=== PATIENT | male | born 1955 | race Caucasian/White ===

== ENCOUNTER 2017-07-31 08:21 | Observation (INO) | payer OTHER ==
[~2017-07-31] VITALS: Ht 185.4 cm; Wt 93.6 kg
[2017-07-31] VITALS (10 sets, daily range): BP systolic 131–163; BP diastolic 71–100; PULSE 80–93; RESP 16–18; TEMP 97.6–98.5; O2SAT 97–100
[~2017-07-31 08:21] MED LIST: ATEN-100 PO; LAMO25TA PO; LATU40TA PO; LISI20 PO; LORA-392 PO; LORTA5 PO; OXCA600 PO; REME15TA PO; SOMA350T PO
[2017-07-31] MEDS ORDERED: SODIUM CHLOR 0.9% 1000 ML INJ 1,000 ML IV ONE (08:36)
--- NOTE | 2017-07-31 08:36 | PD ---
HPI Chief Complaint: Neuro Symptoms/ Deficits Time Seen by Provider: 08:32 Travel History International Travel<30 days: No Contact w/Intl Traveler<30days: No Traveled to known affect area: No History of Present Illness HPI According to patient history he went to sleep and was feeling fine and when he woke up this morning he was unable to do so because he had tremendous weakness on his right side of his body and he was unable to speak clearly. 911 was called the EMS transported the patient in to the emergency department. Patient denies any headache, any blurred vision, or double vision. Patient also denies any pain elsewhere to his body Dr. Jeferson Damico is a primary care physician Allergies to Dilaudid Cipro Doxy fentanyl Levaquin meloxicam Tygacil minocycline and celecoxib Per chart review the patient has history of seizures although the last one was a long time ago previous to 2014, history of bipolar, history of hepatitis B, history of GERD arthritis peptic ulcer, history of hypertension history of hypercholesterolemia, and history of smoking for 40 years PFSH Past Medical History Arthritis: Yes (osteoarrheitis) Bipolar Disorder: Yes Anxiety: No Depression: No Cancer: No Cardiovascular Problems: No Endocrine: No Genitourinary: No Hepatitis: Yes (B) Immune Disorder: No Musculoskeletal: Yes Neurologic: Yes Psychiatric: Yes (pt is bi polar) Reproductive: No Respiratory: No Migraines: No Seizures: Yes (last seizure long time ago) Past Surgical History Other Surgery: Yes Social History Alcohol Use: No Tobacco Use: No Substance Use: No Allergies-Medications (Allergen,Severity, Reaction): Coded Allergies: celecoxib (Unverified Allergy, Severe, RASH, 07/31/17) doxycycline (Unverified Allergy, Severe, ANGIO-EDEMA, 07/31/17) fentanyl (Unverified Allergy, Severe, ITCHING, 07/31/17) levofloxacin (Unverified Allergy, Severe, ANGIO EDEMA, 07/31/17) meloxicam (Unverified Allergy, Severe, RASH, 07/31/17) minocycline (Unverified Allergy, Severe, ANGIO-EDEMA, 07/31/17) tigecycline (Unverified Allergy, Severe, ANGIO-EDEMA, 07/31/17) ciprofloxacin (Unverified Allergy, Unknown, 07/31/17) Reported Meds & Prescriptions Reported Meds & Active Scripts Active Reported Buspirone (Buspirone HCl) 5 Mg Tab 5 Mg PO DAILY Amlodipine (Amlodipine Besylate) 5 Mg Tab 5 Mg PO DAILY Lamotrigine 25 Mg Tab 75 Mg PO HS Xanax (Alprazolam) 0.5 Mg Tab 0.5 Mg PO DAILY PRN Mirtazapine 45 Mg Tab 45 Mg PO HS Trileptal (Oxcarbazepine) 600 Mg Tab 1,800 Mg PO HS Latuda (Lurasidone) 40 Mg Tab 40 Mg PO HS Atenolol 25 Mg Tab 25 Mg PO DAILY Review of Systems Except as stated in HPI: all other systems reviewed are Neg General / Constitutional: No: Fever Eyes: No: Visual changes HENT: No: Headaches Cardiovascular: No: Chest Pain or Discomfort Respiratory: No: Shortness of Breath Gastrointestinal: No: Abdominal Pain Genitourinary: No: Dysuria Musculoskeletal: No: Pain Skin: No Rash Neurologic: Positive: Weakness, Focal Abnormalities Psychiatric: No: Depression Endocrine: No: Polydipsia Hematologic/Lymphatic: No: Easy Bruising Physical Exam Narrative GENERAL: SKIN: Warm and dry. HEAD: Atraumatic. Normocephalic. EYES: Pupils equal and round. No scleral icterus. No injection or drainage. ENT: No nasal bleeding or discharge. Mucous membranes pink and moist. NECK: Trachea midline. No JVD. CARDIOVASCULAR: Regular rate and rhythm. RESPIRATORY: No accessory muscle use. Clear to auscultation. Breath sounds equal bilaterally. GASTROINTESTINAL: Abdomen soft, non-tender, nondistended. Hepatic and splenic margins not palpable. MUSCULOSKELETAL: Extremities without clubbing, cyanosis, or edema. No obvious deformities. NEUROLOGICAL: Awake and alert. Follow instructions well. Right sided facial droop, right-sided weakness 2 out of 5 on right upper extremity, 3 out of 5 on right lower extremity, left upper extremity 4 out of 5 and left lower extremity 4 out of 5 dysarthric but understandable speech PSYCHIATRIC: Appropriate mood and affect; insight and judgment normal. Data Data Last Documented VS Orders Orders Electrocardiogram (07/31/17 ) Diet Npo (07/31/17 Breakfast) Activity Bed Rest (07/31/17 ) I-Stat Profile (07/31/17 08:36) Prothrombin Time / Inr (Pt) (07/31/17 08:36) Act Partial Throm Time (Ptt) (07/31/17 08:36) Complete Blood Count With Diff (07/31/17 08:36) Fibrinogen (07/31/17 08:36) Creatine Kinase (Cpk) (07/31/17 08:36) Troponin I (07/31/17 08:36) Ua Includes Microscopic (07/31/17 08:36) Drug Screen, Random Urine (07/31/17 08:36) Type And Screen (07/31/17 08:36) Ct Brain W/O Iv Contrast(Rout) (07/31/17 ) Chest, Single Ap (07/31/17 ) Cta Brain W Iv Contrast W 3d (07/31/17 08:36) Cta Neck W Iv Contrast W 3d (07/31/17 08:36) Consult Neurology (07/31/17 ) Blood Glucose (07/31/17 08:36) Ecg Monitoring (07/31/17 08:36) Neuro Checks Q2HX12,Q4H (07/31/17 08:36) Nursing Bedside Swallow Assess .ONCE (07/31/17 08:36) Iv Access Insert/Monitor (07/31/17 08:36) NPO (07/31/17 08:36) Oximetry (07/31/17 08:36) Resp Oxygen Nc Stroke (07/31/17 ) Sodium Chlor 0.9% 1000 Ml Inj (Ns 1000 M (07/31/17 08:36) Cath For Specimen (07/31/17 08:36) (Hub Use Only)Inp Phy Cons/Ref (07/31/17 ) Iodixanol 320 Inj (Rad Ct) (Visipaque 32 (07/31/17 09:19) Aspirin (Aspirin) (07/31/17 09:30) Admit Order (Ed Use Only) (07/31/17 09:41) Labs Laboratory Tests Test 07/31/17 08:40 White Blood Count 5.3 TH/MM3 Red Blood Count 4.13 MIL/MM3 Hemoglobin 13.1 GM/DL Bedside Hemoglobin 12.6 G/DL Hematocrit 37.9 % Bedside Hematocrit 37.0 % Mean Corpuscular Volume 91.8 FL Mean Corpuscular Hemoglobin 31.8 PG Mean Corpuscular Hemoglobin Concent 34.7 % Red Cell Distribution Width 13.2 % Platelet Count 225 TH/MM3 Mean Platelet Volume 7.9 FL Neutrophils (%) (Auto) 61.5 % Lymphocytes (%) (Auto) 29.6 % Monocytes (%) (Auto) 5.7 % Eosinophils (%) (Auto) 2.2 % Basophils (%) (Auto) 1.0 % Neutrophils # (Auto) 3.3 TH/MM3 Lymphocytes # (Auto) 1.6 TH/MM3 Monocytes # (Auto) 0.3 TH/MM3 Eosinophils # (Auto) 0.1 TH/MM3 Basophils # (Auto) 0.1 TH/MM3 CBC Comment DIFF FINAL Differential Comment Prothrombin Time 10.0 SEC Prothromb Time International Ratio 1.0 RATIO Activated Partial Thromboplast Time 22.9 SEC Fibrinogen 269 mg/dL Bedside Sodium 139 MMOL/L Bedside Potassium 3.5 MMOL/L Bedside Chloride 104 MMOL/L Bedside Blood Urea Nitrogen 19 MG/DL Bedside Creatinine 1.2 MG/DL Bedside Glucose 115 MG/DL Total Creatine Kinase 166 U/L Troponin I LESS THAN 0.02 NG/ML MDM Medical Decision Making Medical Screen Exam Complete: Yes Emergency Medical Condition: Yes Medical Record Reviewed: Yes Differential Diagnosis Intracranial hemorrhage versus ischemic CVA versus hypoglycemia versus electrolyte imbalance versus atypical STEMI Narrative Course Due to the patient history that he woke up this way it is unclear what the actual timeframe of this CVA deficits are therefore the patient is outside of the window for TPA. Will be sharing this information with the neurologist and CT scan will be on standby to perform CAT scan, she had the CAT scan did not show any intracranial hemorrhage the patient will be given aspirin (of note the patient list NSAIDs as allergies, because he has a history of stomach ulcers, and has been advised not to take that class of medications.) CT read by radiologist as no acute intracranial abnormality identified Discussed with Dr. Alvarado who agrees with current management and admission for CVA workup Critical Care Narrative CRITICAL CARE NOTE: With evaluation of the patient, labs, EKG, receipt of radiologic studies, administration of medications, reevaluation the patient and discussion of the patient with the admitting physicians, the total critical care time was [30] minutes. Time to perform other separately billable procedures was not included in the critical care time. Physician Communication Physician Communication On reevaluation at around 11:30 AM or so the patient's right upper and right lower extremity weaknesses paresis is fully resolved, patient's aphasia or dysarthria also returned to normal and he no longer has a facial palsy either. Patient most likely was experiencing a possible TIA and the workup is unchanged and will continue Diagnosis Primary Impression: TIA (transient ischemic attack) Qualified Codes: G45.9 - Transient cerebral ischemic attack, unspecified Admitting Information Admitting Physician Requests: Admit Scripts Aspirin DR (Aspirin EC) 325 Mg Tabdr 325 MG PO DAILY for TIA, #31 TAB Prov: Daisy Stone 08/01/17 Wang Stratton MD Jul 31, 2017 08:36
--- NOTE | 2017-07-31 08:59 | RADRPT ---
EXAM DATE/TIME: 07/31/2017 08:43 [facility] COMPARISON: CT BRAIN W/O CONTRAST, November 03, 2014, 13:50. INDICATIONS : Slurred speech, right facial droop RADIATION DOSE: 56.35 CTDIvol (mGy) MEDICAL HISTORY : Seizures. Cardiovascular disease SURGICAL HISTORY : None. ENCOUNTER: Initial ACUITY: 1 day PAIN SCALE: 0/10 LOCATION: cranial TECHNIQUE: Multiple contiguous axial images were obtained of the head. Using automated exposure control and adj ustment of the mA and/or kV according to patient size, radiation dose was kept as low as reasonably a chievable to obtain optimal diagnostic quality images. DICOM format image data is available electro nically for review and comparison. FINDINGS: CEREBRUM: The ventricles are normal for age. No evidence of midline shift, mass lesion, hemorrhage or acute in farction. No extra-axial fluid collections are seen. POSTERIOR FOSSA: The cerebellum and brainstem are intact. The 4th ventricle is midline. The cerebellopontine angle i s unremarkable. EXTRACRANIAL: The visualized portion of the orbits is intact. SKULL: The calvaria is intact. No evidence of skull fracture. CONCLUSION: 1. No acute intracranial abnormality identified. Lopez Grant MD on July 31, 2017 at 8:52 Board Certified Radiologist. This report was verified electronically.
[2017-07-31 09:09] LABS: AUTOMATED NEUTROPHIL # 3.3 TH/MM3 (1.8-7.7); BASOPHIL # 0.1 TH/MM3 (0-0.2); EOSINOPHIL # 0.1 TH/MM3 (0-0.4); EOSINOPHIL % 2.2 % (0.0-4.0); HEMATOCRIT 37.9 % (39.0-51.0); HEMOGLOBIN 13.1 GM/DL (13.0-17.0); LYMPH % 29.6 % (9.0-44.0); LYMPHOCYTE # 1.6 TH/MM3 (1.0-4.8); MEAN CELL VOLUME 91.8 FL (80.0-100.0); MEAN CORPUSCULAR HEMOGLOBIN 31.8 PG (27.0-34.0); MEAN CORPUSCULAR HGB CONC 34.7 % (32.0-36.0); MEAN PLATELET VOLUME 7.9 FL (7.0-11.0); MONO % 5.7 % (0.0-8.0); MONOCYTE # 0.3 TH/MM3 (0-0.9); NEUT % 61.5 % (16.0-70.0); PLATELET COUNT 225 TH/MM3 (150-450); RED BLOOD COUNT 4.13 MIL/MM3 (4.50-5.90); RED CELL DISTRIBUTION WIDTH 13.2 % (11.6-17.2); WHITE BLOOD COUNT 5.3 TH/MM3 (4.0-11.0)
[2017-07-31] MEDS ORDERED: IODIXANOL 320 MG/ML 10 ML VIAL (for Rad CT) IVCONTRAST ONE (09:19)
[2017-07-31] MEDS ORDERED: ASPIRIN 325 MG TAB PO ONE (09:30)
[2017-07-31 09:34] LABS: TROPONIN I LESS THAN 0.02 NG/ML (0.02-0.05)
--- NOTE | 2017-07-31 09:39 | RADRPT ---
EXAM DATE/TIME: 07/31/2017 09:18 [facility] COMPARISON: CHEST SINGLE AP, November 02, 2014, 14:39. INDICATIONS : Stroke. MEDICAL HISTORY : Cardiovascular disease. Seizures. SURGICAL HISTORY : None. ENCOUNTER: Initial ACUITY: 1 day PAIN SCORE: 0/10 LOCATION: Bilateral chest FINDINGS: There is lesser degree of inspiration than on prior chest x-ray at 2014 and there is some indistinctn ess of the central bronchopulmonary markings most top no definite infiltrates seen. The heart is nor mal size. Both hemidiaphragms are well delineated. CONCLUSION: Indistinctness of the central bronchopulmonary markings could be a manifestation of submaximal inspir ation or pulmonary edema. Glynn Lozano MD on July 31, 2017 at 9:36 Board Certified Radiologist. This report was verified electronically.
[2017-07-31] MEDS ORDERED: ONDANSETRON HCL 4 MG/2 ML VIAL ONE (10:12)
--- NOTE | 2017-07-31 10:12 | RADRPT ---
EXAM DATE/TIME: 07/31/2017 08:43 [facility] COMPARISON: CT BRAIN W/O CONTRAST, November 03, 2014, 13:50. INDICATIONS : Slurred speech, right facial droop. IV CONTRAST: 100 cc Visipaque (iodixanol) IV RADIATION DOSE: 10.23 CTDIvol (mGy) MEDICAL HISTORY : Cardiovascular disease. Seizures. SURGICAL HISTORY : None. ENCOUNTER: Initial ACUITY: 1 day PAIN SCALE: 0/10 LOCATION: neck Elevated flow velocities and ICA/CCA ratios have been found to correlate with increased degrees of vessel stenosis, calculated as percentage of diameter relative to a normal segment of distal ICA/CCA. TECHNIQUE: Volumetric scanning was performed using a multirow detector CT scanner. The data was post processed with a variety of visualization algorithms including full-volume maximum intensity projection, multip lanar sliding thin-slab reformation, curved-planar reformation, and surface-rendering techniques. Us ing automated exposure control and adjustment of the mA and/or kV according to patient size, radiatio n dose was kept as low as reasonably achievable to obtain optimal diagnostic quality images. DICOM f ormat image data is available electronically for review and comparison. FINDINGS: AORTIC ARCH: There is a three-vessel origin of the great vessels from the aorta. No evidence of ostial narrowing. RIGHT CAROTID: The common carotid artery is intact. The carotid bulb has a normal configuration without ulceration o r narrowing. The internal carotid artery lumen is smooth without stenosis. The external carotid ramonita ry is intact. LEFT CAROTID: The common carotid artery is intact. The carotid bulb has a normal configuration without ulceration or narrowing. The internal carotid artery lumen is smooth without stenosis. The external carotid ar lauren is intact. VERTEBRALS: The vertebral arteries have a symmetric diameter. No stenotic lesions are seen. CONCLUSION: 1. No hemodynamically significant carotid artery stenosis identified. 2. No significant plaque is identified 3. The vertebral arteries are widely patent. Lopez Grant MD on July 31, 2017 at 9:58 Board Certified Radiologist. This report was verified electronically.
--- NOTE | 2017-07-31 10:26 | RADRPT ---
EXAM DATE/TIME: 07/31/2017 08:43 [facility] COMPARISON: CT BRAIN W/O CONTRAST, November 03, 2014, 13:50. INDICATIONS : Slurred speech, right facial droop. IV CONTRAST: 100 cc Visipaque (iodixanol) IV ; Cumulative dose for multiple exams. RADIATION DOSE: 10.73 CTDIvol (mGy) ; Combined studies MEDICAL HISTORY : Seizures. Cardiovascular disease SURGICAL HISTORY : None. ENCOUNTER: Initial ACUITY: 1 day PAIN SCALE: 0/10 LOCATION: cranial TECHNIQUE: Volumetric scanning was performed using a multi-row detector CT scanner. The data was post processed with a variety of visualization algorithms including full volume maximum intensity projection, multi -planar sliding thin slab reformation, curved planar reformation, and surface rendering techniques. Using automated exposure control and adjustment of the mA and/or kV according to patient size, radiat ion dose was kept as low as reasonably achievable to obtain optimal diagnostic quality images. DICO M format image data is available electronically for review and comparison. FINDINGS: There is excellent visualization of the major intracranial arteries out to the second-order branch ve ssels. There is no evidence for aneurysm, vessel truncation or stenosis, and no evidence for vascula r malformation. CONCLUSION: 1. Intracranial circulation is widely patent. No large or central vessel occlusion is identified. Lopez Grant MD on July 31, 2017 at 10:10 Board Certified Radiologist. This report was verified electronically.
--- NOTE | 2017-07-31 10:33 | HHI.HP ---
HPI Service [facility] Hospitalists Primary Care Physician Jeferson Damico MD Admission Diagnosis ACUTE CVA Chief Complaint: Right sided weakness, dysarthria Travel History International Travel<30 Days: No Contact w/Intl Traveler <30 Da: No Traveled to Known Affected Are: No History of Present Illness Mr. Christianson is a pleasant 61 y/o WM with HTN, hyperlipidemia, hx of tobacco use who presented to the ED at [facility] on 07/31/17 with stroke-like symptoms. He reports that he went to sleep last night and was feeling normal. When he woke up this morning he had tremendous weakness on his right side of his body and he was unable to speak clearly. He states that he fell out of his bed due to the right sided weakness. Emergency services were called the EMS transported the patient to the emergency department as a stroke alert. Pt was noted to have a right sided facial droop as well. Patient denies any headache, any blurred vision, or double vision. He has had some dizziness with associated nausea and vomiting since arrival to the ED. Head CT in the ED was negative. Pt is in NSR on telemetry. He denies any known hx of irregular heart rhythms or hx of CVA/TIA previously. Neurology was contacted in the ED. CTA of the Head and Neck was performed and were negative. While in the ED the pts right sided weakness fully resolved and his speech returned to normal. He states that he has had some changes recently to his psych medications but is unable to give me specifics on which ones and what doses were changed. Review of Systems Constitutional: COMPLAINS OF: Dizziness, DENIES: Fever, Chills Eyes: DENIES: Vision loss Ears, nose, mouth, throat: DENIES: Hearing loss, Throat pain, Running Nose, Sinus Pain Respiratory: DENIES: Cough, Shortness of breath Cardiovascular: DENIES: Chest pain, Palpitations, Lower Extremity Edema Gastrointestinal: COMPLAINS OF: Nausea, Vomiting, DENIES: Abdominal pain Genitourinary: DENIES: Urgency, Dysuria Musculoskeletal: DENIES: Back pain, Neck pain Integumentary: DENIES: Rash Neurologic: COMPLAINS OF: Localized weakness, Speech Problems Psychiatric: DENIES: Confusion Past Family Social History Past Medical History HTN Hyperlipidemia Insomnia Bipolar disorder Chronic back pain Hx of BCC Hx of seizure disorder GERD Past Surgical History Multiple BCC removal EGD and colonoscopy Lumbar spine surgery in 2011 Reported Medications -Atenolol 25 Mg PO DAILY -Trileptal 1,800 Mg PO HS -Remeron 45 Mg PO HS -Latuda 40 Mg PO HS -Lamotrigine 75Mg PO HS -Alprazolam 0.5Mg PO BID PRN Anxiety -Amlodipine 5Mg PO DAILY -Buspirone 5Mg PO DAILY Allergies: Coded Allergies: celecoxib (Unverified Allergy, Severe, RASH, 07/31/17) doxycycline (Unverified Allergy, Severe, ANGIO-EDEMA, 07/31/17) fentanyl (Unverified Allergy, Severe, ITCHING, 07/31/17) levofloxacin (Unverified Allergy, Severe, ANGIO EDEMA, 07/31/17) meloxicam (Unverified Allergy, Severe, RASH, 07/31/17) minocycline (Unverified Allergy, Severe, ANGIO-EDEMA, 07/31/17) tigecycline (Unverified Allergy, Severe, ANGIO-EDEMA, 07/31/17) ciprofloxacin (Unverified Allergy, Unknown, 07/31/17) Family History Father at age 84 from CVA, also had HTN and CAD Mother at age 93 and had HTN, RCC and colon cancer Two bothers, one with hx of CAD and colon cancer Social History Hx of tobacco use, smoked 1/2 ppd from age 15 to 53 Rare social alcohol use Denies any illicit drug use 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 SKIN: No rashes, ecchymoses or lesions. Cool and dry. HEENT: Atraumatic. Normocephalic. No temporal or scalp tenderness. No scleral icterus. Horizontal nystagmus noted. Airway patent. NECK: Trachea midline, supple, nontender. CARDIO: Regular. RESP: CTA bilaterally. No wheezes, rales, or rhonchi. ABD: +BS, soft, non-tender, nondistended. No guarding. EXT: Extremities without clubbing, cyanosis, or edema. NEURO: Awake and alert. Cranial nerves II through XII intact. Motor and sensory grossly within normal limits. Five out of 5 muscle strength in all muscle groups. Normal speech. Laboratory Laboratory Tests Test 07/31/17 08:40 White Blood Count 5.3 Red Blood Count 4.13 Hemoglobin 13.1 Bedside Hemoglobin 12.6 Hematocrit 37.9 Bedside Hematocrit 37.0 Mean Corpuscular Volume 91.8 Mean Corpuscular Hemoglobin 31.8 Mean Corpuscular Hemoglobin Concent 34.7 Red Cell Distribution Width 13.2 Platelet Count 225 Mean Platelet Volume 7.9 Neutrophils (%) (Auto) 61.5 Lymphocytes (%) (Auto) 29.6 Monocytes (%) (Auto) 5.7 Eosinophils (%) (Auto) 2.2 Basophils (%) (Auto) 1.0 Neutrophils # (Auto) 3.3 Lymphocytes # (Auto) 1.6 Monocytes # (Auto) 0.3 Eosinophils # (Auto) 0.1 Basophils # (Auto) 0.1 CBC Comment DIFF FINAL Differential Comment Prothrombin Time 10.0 Prothromb Time International Ratio 1.0 Activated Partial Thromboplast Time 22.9 Fibrinogen 269 Bedside Sodium 139 Bedside Potassium 3.5 Bedside Chloride 104 Bedside Blood Urea Nitrogen 19 Bedside Creatinine 1.2 Bedside Glucose 115 Total Creatine Kinase 166 Troponin I LESS THAN 0.02 Result Diagram: 07/31/17 0840 Imaging Last Impressions Neck CTA 07/31/1736 Signed Impressions: Service Date/Time: July 08:43 - CONCLUSION: 1. No hemodynamically significant carotid artery stenosis identified. 2. No significant plaque is identified 3. The vertebral arteries are widely patent. Lopez Grant MD Head CTA 07/31/1736 Signed Impressions: Service Date/Time: July 08:43 - CONCLUSION: 1. Intracranial circulation is widely patent. No large or central vessel occlusion is identified. Lopez Grant MD Head CT 07/31/17 0000 Signed Impressions: Service Date/Time: July 08:43 - CONCLUSION: 1. No acute intracranial abnormality identified. Lopez Grant MD Chest X-Ray 07/31/17 0000 Signed Impressions: Service Date/Time: July 09:18 - CONCLUSION: Indistinctness of the central bronchopulmonary markings could be a manifestation of submaximal inspiration or pulmonary edema. Glynn Lozano MD Caprini VTE Risk Assessment Caprini VTE Risk Assessment: Mod/High Risk (score >= 2) Caprini Risk Assessment Model Point Value = 1 Point Value = 2 Point Value = 3 Point Value = 5 Age 41-60 Minor surgery BMI > 25 kg/m2 Swollen legs Varicose veins or History of unexplained or recurrent spontaneous Oral contraceptives or hormone replacement Sepsis (< 1 month) Serious lung disease, including pneumonia (< 1 month) Abnormal pulmonary function Acute myocardial infarction Congestive heart failure (< 1 month) History of inflammatory bowel disease Medical patient at bed rest Age 61-74 Arthroscopic surgery Major open surgery (> 45 min) Laparoscopic surgery (> 45 min) Malignancy Confined to bed (> 72 hours) Immobilizing plaster cast Central venous access Age >= 75 History of VTE Family history of VTE Factor V Leiden Prothrombin [id number] Lupus anticoagulant Anticardiolipin antibodies Elevated serum homocysteine Heparin-induced thrombocytopenia Other congenital or acquired thrombophilia Stroke (< 1 month) Elective arthroplasty Hip, pelvis, or leg fracture Acute spinal cord injury (< 1 month) Prophylaxis Regimen Total Risk Factor Score Risk Level Prophylaxis Regimen 0-1 Low Early ambulation 2 Moderate Order ONE of the following: *Sequential Compression Device (SCD) *Heparin 5000 units SQ BID 3-4 Higher Order ONE of the following medications: *Heparin 5000 units SQ TID *Enoxaparin/Lovenox 40 mg SQ daily (WT < 150 kg, CrCl > 30 mL/min) *Enoxaparin/Lovenox 30 mg SQ daily (WT < 150 kg, CrCl > 10-29 mL/min) *Enoxaparin/Lovenox 30 mg SQ BID (WT < 150 kg, CrCl > 30 mL/min) AND/OR *Sequential Compression Device (SCD) 5 or more Highest Order ONE of the following medications: *Heparin 5000 units SQ TID (Preferred with Epidurals) *Enoxaparin/Lovenox 40 mg SQ daily (WT < 150 kg, CrCl > 30 mL/min) *Enoxaparin/Lovenox 30 mg SQ daily (WT < 150 kg, CrCl > 10-29 mL/min) *Enoxaparin/Lovenox 30 mg SQ BID (WT < 150 kg, CrCl > 30 mL/min) AND *Sequential Compression Device (SCD) Assessment and Plan Problem List: (1) TIA (transient ischemic attack) ICD Codes: G45.9 - Transient cerebral ischemic attack, unspecified Status: Acute Plan: TIA Transient right sided weakness/right facial droop/dysarthria - Pt is a 61 y/o male with HTN, hyperlipidemia, hx of tobacco use who presented to the ED at [facility] on 07/31/17 with stroke-like symptoms. - He reports that he went to sleep last night and was feeling normal. When he woke up this morning he had tremendous weakness on his right side of his body, right facial droop and dysarthria. While in the ED the pts right sided weakness fully resolved and his speech returned to normal. - He has had some dizziness with associated nausea and vomiting since arrival to the ED. - Head CT in the ED was negative. - Pt is in NSR on telemetry. - Pt was given ASA in the ED and this will be continued - Neurology was consulted in the ED. - CTA of the Head and Neck was performed and are negative. - Check MRI Brain - Hold home BP meds for now for permissive HTN - Telemetry/Holter monitor - 2D echo - IVF - PT/OT - FLP and Hgb A1C in AM - Pt is speaking normally and no issues with dysphagia reported, pt requesting diet - Tylenol PRN headache - Zofran PRN nausea/vomiting HTN - Home meds on hold for permissive HTN - Vasotec PRN GERD - PPI Bipolar Disorder - Resume home meds at current reported doses Hx of seizure disorder - Resume home meds (2) Hypertension ICD Codes: I10 - Hypertension Status: Acute (3) GERD (gastroesophageal reflux disease) ICD Codes: K21.9 - GERD (gastroesophageal reflux disease) Status: Acute (4) Bipolar 1 disorder ICD Codes: F31.9 - Bipolar 1 disorder Status: Acute Physician Certification 2 Midnight Certification Type: Admission for Inpatient Services Order for Inpatient Services The services are ordered in accordance with Medicare regulations or non- Medicare payer requirements, as applicable. In the case of services not specified as inpatient-only, they are appropriately provided as inpatient services in accordance with the 2-midnight benchmark. Estimated LOS (days): 3 3 days is the estimated time the patient will need to remain in the hospital, assuming treatment plan goals are met and no additional complications. Post-Hospital Plan: Not yet determined Daiys Stone Jul 31, 2017 10:32
[2017-07-31] MEDS ORDERED: ALPR.5 PO (11:14)
[2017-07-31] MEDS ORDERED: TRIL600T PO (11:14)
[2017-07-31] MEDS ORDERED: LURA40 PO (11:14)
[2017-07-31] MEDS ORDERED: MIRT45TA PO (11:14)
[2017-07-31] MEDS ORDERED: ATEN25TA PO (11:14)
[2017-07-31] MEDS ORDERED: LAMO25TA PO (11:14)
[2017-07-31] MEDS ORDERED: AMLO5TAB2 PO (11:15)
[2017-07-31] MEDS ORDERED: BUSP5TAB PO (11:17)
[2017-07-31] MEDS ORDERED: ONDANSETRON HCL 4 MG/2 ML VIAL IV PUSH ONE (11:45)
[2017-07-31] MEDS ORDERED: METOCLOPRAMIDE HCL 10 MG/2 ML VIAL IV PUSH ONE (11:45)
[2017-07-31 11:46] LABS: BILIRUBIN, URINE NEG (NEG); BLOOD, URINE TRACE (NEG); GLUCOSE,URINE NEG (NEG); KETONE, URINE NEG (NEG); MUCUS URINE FEW /lpf (OCC); NITRITE,URINE NEG (NEG); PH, URINE 6.5 (5.0-8.5); URINE COLOR LIGHT-YELLOW (YELLW/STRAW); URINE LEUKOCYTE ESTERASE NEG (NEG)
[2017-07-31] MEDS ORDERED: ALPRAZolam 0.5 MG TAB PO PRN (12:30)
[2017-07-31] MEDS ORDERED: ACETAMINOPHEN 325 MG TAB PO PRN (12:30)
[2017-07-31] MEDS ORDERED: ONDANSETRON HCL 4 MG/2 ML VIAL IV PRN (12:30)
[2017-07-31] MEDS ORDERED: POTASSIUM CHLORIDE 20 MEQ CONTROLLED RELEASE TAB PO ONE (12:45)
[2017-07-31] MEDS ORDERED: ENALAPRILAT 1.25 MG/ML VIAL IV PUSH PRN (13:30)
--- NOTE | 2017-07-31 15:24 | MB ---
cc: Leida Alvarado MD DATE: 07/31/2017 DATE OF : 1955 AGE: [age] years old. REASON FOR CONSULTATION: Possible stroke. HISTORY OF PRESENT ILLNESS: This is a 61-year-old male with a history of hypertension, hyperlipidemia, epilepsy. He comes in this morning with stroke-like symptoms. Apparently he woke up with some weakness, fell and had to go outside to call for help. Neighbors called EMS and brought him in. He did not receive t-PA due to the fact he woke up with symptoms. He had a right facial droop, possible dysarthria, weakness in the arm and leg, has now resolved. He has never had anything like this before. He states his last seizure would have been maybe a year ago, but never presented this way. He does not believe he had a seizure. He is back to baseline now. PAST MEDICAL HISTORY: As stated, hypertension, hyperlipidemia, insomnia, bipolar disorder, chronic back pain, basal cell carcinoma, seizures. He follows I believe with Dr. Carson. Reflux disease. PAST SURGICAL HISTORY: Basal cell carcinoma removal, EGD, colonoscopy, lumbar spine surgery in 03/2012. HOME MEDICINES: 1. Atenolol. 2. Trileptal. 3. Remeron. 4. Latuda 5. Lamotrigine. 6. Alprazolam. 7. Amlodipine. 8. Buspirone. ALLERGIES: CELEBREX, DOXYCYCLINE, FENTANYL, LEVAQUIN, MELOXICAM, MINOCYCLINE, TIGECYCLINE AND CIPROFLOXACIN. FAMILY HISTORY: Father from a stroke. Also had hypertension and heart disease. Mother at 93 of hypertension, colon cancer. Two brothers, one with history of heart disease and the other with colon cancer. SOCIAL HISTORY: He used to smoke, stopped. Smoked for about 40 years, quit at age 53. Rarely drinks. No illicit drugs. 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 PHYSICAL EXAMINATION: VITAL SIGNS: Temperature 97.6, pulse 98, respiratory rate 16, blood pressure 131/71, saturating at 100% on room air. NECK: Supple. No appreciable bruits. HEART: Regular. NEUROLOGIC: He is awake and alert. He is oriented and fluent. Pupils reactive. Visual morejon full. Face symmetrical. Tongue midline. Motor-noguera, there is no drift or leg lag. Cerebellar testing is normal. Sensory is normal. Toes are downgoing. 1-2+ reflexes. Gait is withheld today. LABORATORY DATA: Reviewed. IMAGING: He had a CT of the head, unremarkable for any acute findings. CTA of the [place] of [place] and carotids were normal. ASSESSMENT AND PLAN: A 61-year-old man with what sounds like a transient ischemic attack. Continue to monitor on telemetry and get an MRI of the brain, an echocardiogram, fasting lipid panel, hemoglobin A1c. Continue his home medications and start him on antiplatelet therapy, aspirin. Permissible hypertension today. Start normalizing his blood pressure tomorrow. If his workup is unremarkable, I will have PT and OT see him. He may need to be on a statin. If his workup is unremarkable, then certainly he can be discharged in the next 24 hours. Continue current care as outlined. MD TRISTON Schultz/ZAHRAA , 02:48 PM , 03:23 PM
--- NOTE | 2017-07-31 16:23 | RADRPT ---
EXAM DATE/TIME: 07/31/2017 15:43 [facility] COMPARISON: CT BRAIN W/O CONTRAST, July 31, 2017, 8:43. INDICATIONS : CVA. Right sided facial droop and slurred speech. MEDICAL HISTORY : Hypertension. Seizures. Cardiac. SURGICAL HISTORY : Discectomy, lumbar. ENCOUNTER: Initial ACUITY: 1 day PAIN SCORE: 6/10 LOCATION: Bilateral cranial TECHNIQUE: Multiplanar, multisequence MRI of the brain was performed without contrast. FINDINGS: CEREBRUM: The ventricles are normal for age. No evidence of midline shift, mass lesion, hemorrhage or acute in farction. No extraaxial fluid collections are seen. The pituitary gland and suprasellar cistern are normal in configuration. WHITE MATTER: No significant signal abnormalities are seen in the white matter. POSTERIOR FOSSA: The cerebellum and brainstem are intact. The 4th ventricle is midline. The cerebellopontine angle is unremarkable. The cerebellar tonsils are normal in position. DIFFUSION IMAGING: No focal areas of restricted diffusion are seen. No evidence of acute infarction. EXTRACRANIAL: The visualized portions of the orbits and paranasal sinuses are unremarkable. CONCLUSION: 1. Negative MRI of the brain without contrast. No evidence of acute infarction. Glynn Lozano MD on July 31, 2017 at 16:19 Board Certified Radiologist. This report was verified electronically.
[2017-07-31] MEDS: SODIUM CHLOR 0.9% 1000 ML INJ 1,000 ML IV SCH ×2 (16:54→22:30)
[2017-07-31] MEDS ORDERED: MIRTAZAPINE 15 MG TAB PO SCH (21:00)
[2017-07-31] MEDS ORDERED: OXcarbazepine 600 MG TAB PO SCH (21:00)
[2017-07-31] MEDS ORDERED: LURASIDONE 40 MG TAB PO SCH (21:00)
[2017-07-31] MEDS ORDERED: lamoTRIgine 25 MG TAB PO SCH (21:00)
[2017-08-01] VITALS: PULSE 77
[2017-08-01 00:12] VITALS: BP 136/82; PULSE 81; RESP 18; TEMP 98.8; O2SAT 96
[2017-08-01] MEDS: SODIUM CHLOR 0.9% 1000 ML INJ 1,000 ML IV SCH (02:50)
[2017-08-01 05:13] VITALS: BP 148/87; PULSE 77; RESP 18; TEMP 98.5; O2SAT 95
[2017-08-01 08:13] VITALS: PULSE 72
[2017-08-01] MEDS ORDERED: ASPIRIN EC 325 MG TABEC PO SCH (09:00)
[2017-08-01] MEDS ORDERED: busPIRone HCL 5 MG TAB PO SCH (09:00)
[2017-08-01 09:30] LABS: CHOLESTEROL 217 MG/DL (120-200)
[2017-08-01 09:36] LABS: CHOLESTEROL/ HDL RATIO 2.37 RATIO; HDL CHOLESTEROL 91.2 MG/DL (40.0-60.0); LDL CHOLESTEROL 104 MG/DL (0-99); TRIGLYCERIDES 108 MG/DL (42-150)
[2017-08-01 10:39] VITALS: O2SAT 95
--- NOTE | 2017-08-01 10:40 | EKG ---
Date Performed: 07/31/2017 Time Performed: 08:35:11 PTAGE: 61 years EKG: Sinus rhythm POSSIBLE LEFT ATRIAL ENLARGEMENT POSSIBLE RIGHT VENTRICULAR CONDUCTION DELAY BORDERLINE ECG PREVIOUS TRACING : 11/02/2014 19.28 Since the prior tracing, the patient has developed a right ventricular conduction delay, but no other significant serial change. DOCTOR: Shi Peña Interpretating Date/Time 08/01/2017 10:38:25
--- NOTE | 2017-08-01 10:51 | HHI.PR ---
Subjective Remarks Pts symptoms have fully resolved and did well with PT this morning and is not being recommended for any HHC/PT from their standpoint Objective Vitals Vital Signs Date Time Temp Pulse Resp B/P (MAP) Pulse Ox O2 Delivery O2 Flow Rate FiO2 08/01/17 10:39 95 08/01/17 05:13 98.5 77 18 148/87 (107) 95 08/01/17 00:12 98.8 81 18 136/82 (100) 96 08/01/17 00:00 77 07/31/17 23:11 82 07/31/17 20:44 98.5 85 18 141/81 (101) 99 07/31/17 14:00 98 16 131/71 (91) 100 07/31/17 13:00 82 18 134/85 (101) 97 Room Air 21 07/31/17 12:00 80 16 134/85 (101) 100 Room Air 21 07/31/17 11:19 100 21 07/31/17 11:00 80 18 139/95 (110) 100 Room Air 08/01/17 08/01/17 08/02/17 14:59 22:59 06:59 Output Total 300 ml Balance -300 ml Output Urine Total 300 ml Result Diagram: 07/31/17 0840 Other Results Laboratory Tests Test 07/31/17 08:40 07/31/17 11:30 08/01/17 07:21 White Blood Count 5.3 TH/MM3 Red Blood Count 4.13 MIL/MM3 Hemoglobin 13.1 GM/DL Bedside Hemoglobin 12.6 G/DL Hematocrit 37.9 % Bedside Hematocrit 37.0 % Mean Corpuscular Volume 91.8 FL Mean Corpuscular Hemoglobin 31.8 PG Mean Corpuscular Hemoglobin Concent 34.7 % Red Cell Distribution Width 13.2 % Platelet Count 225 TH/MM3 Mean Platelet Volume 7.9 FL Neutrophils (%) (Auto) 61.5 % Lymphocytes (%) (Auto) 29.6 % Monocytes (%) (Auto) 5.7 % Eosinophils (%) (Auto) 2.2 % Basophils (%) (Auto) 1.0 % Neutrophils # (Auto) 3.3 TH/MM3 Lymphocytes # (Auto) 1.6 TH/MM3 Monocytes # (Auto) 0.3 TH/MM3 Eosinophils # (Auto) 0.1 TH/MM3 Basophils # (Auto) 0.1 TH/MM3 CBC Comment DIFF FINAL Differential Comment Prothrombin Time 10.0 SEC Prothromb Time International Ratio 1.0 RATIO Activated Partial Thromboplast Time 22.9 SEC Fibrinogen 269 mg/dL Bedside Sodium 139 MMOL/L Bedside Potassium 3.5 MMOL/L Bedside Chloride 104 MMOL/L Bedside Blood Urea Nitrogen 19 MG/DL Bedside Creatinine 1.2 MG/DL Bedside Glucose 115 MG/DL Total Creatine Kinase 166 U/L Troponin I LESS THAN 0.02 NG/ML Urine Color LIGHT-YELLOW Urine Turbidity CLEAR Urine pH 6.5 Urine Specific [place] 1.032 Urine Protein NEG mg/dL Urine Glucose (UA) NEG mg/dL Urine Ketones NEG mg/dL Urine Occult Blood TRACE Urine Nitrite NEG Urine Bilirubin NEG Urine Urobilinogen LESS THAN 2.0 MG/DL Urine Leukocyte Esterase NEG Urine RBC 1 /hpf Urine WBC LESS THAN 1 /hpf Urine Mucus FEW /lpf Urine Opiates Screen NEG Urine Barbiturates Screen NEG Urine Amphetamines Screen NEG Urine Benzodiazepines Screen NEG Urine Cocaine Screen NEG Urine Cannabinoids Screen NEG Triglycerides Level 108 MG/DL Cholesterol Level 217 MG/DL LDL Cholesterol 104 MG/DL HDL Cholesterol 91.2 MG/DL Cholesterol/HDL Ratio 2.37 RATIO Imaging Last Impressions Neck CTA 07/31/1736 Signed Impressions: Service Date/Time: July 08:43 - CONCLUSION: 1. No hemodynamically significant carotid artery stenosis identified. 2. No significant plaque is identified 3. The vertebral arteries are widely patent. Lopez Grant MD Head CTA 07/31/17 0836 Signed Impressions: Service Date/Time: July 08:43 - CONCLUSION: 1. Intracranial circulation is widely patent. No large or central vessel occlusion is identified. Lopez Grant MD Head CT 07/31/17 0000 Signed Impressions: Service Date/Time: July 08:43 - CONCLUSION: 1. No acute intracranial abnormality identified. Lopez Grant MD Chest X-Ray 07/31/17 0000 Signed Impressions: Service Date/Time: July 09:18 - CONCLUSION: Indistinctness of the central bronchopulmonary markings could be a manifestation of submaximal inspiration or pulmonary edema. Glynn Lozano MD Brain MRI 07/31/17 0000 Signed Impressions: Service Date/Time: July 15:43 - CONCLUSION: 1. Negative MRI of the brain without contrast. No evidence of acute infarction. Glynn Lozano MD Last Impressions Neck CTA 07/31/1736 Signed Impressions: Service Date/Time: July 08:43 - CONCLUSION: 1. No hemodynamically significant carotid artery stenosis identified. 2. No significant plaque is identified 3. The vertebral arteries are widely patent. Lopez Grant MD Head CTA 07/31/1736 Signed Impressions: Service Date/Time: July 08:43 - CONCLUSION: 1. Intracranial circulation is widely patent. No large or central vessel occlusion is identified. Lopez Grnat MD Head CT 07/31/17 0000 Signed Impressions: Service Date/Time: July 08:43 - CONCLUSION: 1. No acute intracranial abnormality identified. Lopez Grant MD Chest X-Ray 07/31/17 0000 Signed Impressions: Service Date/Time: July 09:18 - CONCLUSION: Indistinctness of the central bronchopulmonary markings could be a manifestation of submaximal inspiration or pulmonary edema. Glynn Lozano MD Objective Remarks General: NAD, AAOx3 Chest: CTA Cardiac: Regular Abd: +BS, soft ND/NT Ext: No edema A/P Problem List: (1) TIA (transient ischemic attack) ICD Codes: G45.9 - Transient cerebral ischemic attack, unspecified Status: Acute Plan: TIA Transient right sided weakness/right facial droop/dysarthria - Pt is a 61 y/o male with HTN, hyperlipidemia, hx of tobacco use who presented to the ED at [facility] on 07/31/17 with stroke-like symptoms. - He reports that he went to sleep last night and was feeling normal. When he woke up this morning he had tremendous weakness on his right side of his body, right facial droop and dysarthria. While in the ED the pts right sided weakness fully resolved and his speech returned to normal. - He has had some dizziness with associated nausea and vomiting since arrival to the ED. - Head CT in the ED was negative. - Pt is in NSR on telemetry. - Pt was given ASA in the ED and this will be continued - Neurology was consulted in the ED. - CTA of the Head and Neck was performed and are negative. - MRI Brain --> Negative MRI of the brain without contrast. No evidence of acute infarction. - Telemetry - Holter monitor is pending and can be followed up on as an outpt with PCP - 2D echo is pending and can be followed up on by his PCP - PT/OT - FLP reviewed and LDL is 104 and Hgb A1C is pending - Pt refusing statin drug because he states that he has family members who have not tolerated the statins in the past - Neurology is recommending continued ASA therapy - Pt will need to followup with PCP, Dr. Damico, in 1 week - Pt will need to followup with Dr. Alvarado in 2 weeks. - Tylenol PRN headache - Zofran PRN nausea/vomiting HTN - Resume home meds on discharge - Vasotec PRN GERD - PPI Bipolar Disorder - Resume home meds at current reported doses Hx of seizure disorder - Resume home meds (2) Hypertension ICD Codes: I10 - Hypertension Status: Acute (3) GERD (gastroesophageal reflux disease) ICD Codes: K21.9 - GERD (gastroesophageal reflux disease) Status: Acute (4) Bipolar 1 disorder ICD Codes: F31.9 - Bipolar 1 disorder Status: Acute Assessment and Plan Patient examined. Assessment and plan formulated with Daisy Stone PA-C. I agree with the above. TIA. neuro sx's completely resolved. ct/cta and mri brain all negative for cva f/u echo and holter. asa. refuses to use a statin. f/u neurology closely no PT needed. d/c home. Problem Qualifiers (1) TIA (transient ischemic attack): Qualified Codes: G45.9 - Transient cerebral ischemic attack, unspecified Daisy Stone Aug 01, 2017 10:51 David Noland MD Aug 01, 2017 11:21
[2017-08-01] MEDS ORDERED: ASPI325T33 PO (10:52)
--- NOTE | 2017-08-01 10:56 | HHI.DCPOC ---
Discharge Care Plan Diagnosis: (1) TIA (transient ischemic attack) (2) Hypertension (3) GERD (gastroesophageal reflux disease) (4) Bipolar 1 disorder Goals to Promote Your Health - Holter monitor is pending and can be followed up on as an outpt with PCP - 2D echo is pending and can be followed up on by his PCP - Neurology is recommending continued Aspirin therapy - Pt will need to followup with PCP, Dr. Damico, in 1 week, call for an appt - Pt will need to followup with Dr. Alvarado in 2 weeks, call for an appt Directions to Meet Your Goals Take your medications as prescribed Follow your dietary instruction Follow activity as directed Keep your appointments as scheduled Take your immunizations and boosters as scheduled If your symptoms worsen call your PCP, if no PCP go to Urgent Care Center or Emergency Room Smoking is Dangerous to Your Health. Avoid second hand smoke Call the 24-hour hour crisis hotline for domestic abuse at Daisy Stone Aug 01, 2017 10:56
--- NOTE | 2017-08-01 13:40 | ECHRPT ---
Indication: CVA/TIA CONCLUSIONS The left ventricular systolic function is low normal with an estimated ejection fraction in the rang e of 50- 55%. Normal left ventricular size. Wall thickness is measured at the upper limits of normal. Mild mitral valve regurgitation. There is mild tricuspid valve regurgitation. The estimated pulmonary arterial pressure is 39.4 mmHg. BP: / HR: 84 Rhythm: Sinus MEASUREMENTS (Male / Female) Normal Values Technical Quality:Fair 2D ECHO LV Diastolic Diameter PLAX 4.5 cm 4.2 - 5.9 / 3.9 - 5.3 cm LV Systolic Diameter PLAX 3.5 cm IVS Diastolic Thickness 1.0 cm 0.6 - 1.0 / 0.6 - 0.9 cm LVPW Diastolic Thickness 1.0 cm 0.6 - 1.0 / 0.6 - 0.9 cm LV Relative Wall Thickness 0.4 RV Internal Dim ED PLAX 2.7 cm LA Systolic Diameter LX 3.3 cm 3.0 - 4.0 / 2.7 - 3.8 cm M-MODE Aortic Root Diameter MM 3.1 cm LA Systolic Diameter MM 3.3 cm LA Ao Ratio MM 1.1 AV Cusp Separation MM 1.9 cm DOPPLER AV Peak Velocity 140.0 cm/s AV Peak Gradient 7.8 mmHg LVOT Peak Velocity 88.4 cm/s LVOT Peak Gradient 3.1 mmHg MV Area PHT 3.5 cm Mitral E Point Velocity 82.4 cm/s Mitral A Point Velocity 48.7 cm/s Mitral E to A Ratio 1.7 LV E' Lateral Velocity 13.9 cm/s Mitral E to LV E' Lateral Ratio 5.9 LV E' Septal Velocity 10.0 cm/s Mitral E to LV E' Septal Ratio 8.2 TR Peak Velocity 271.0 cm/s TR Peak Gradient 29.4 mmHg Right Atrial Pressure 10.0 mmHg Pulmonary Artery Systolic Pressu 39.4 mmHg Right Ventricular Systolic Press 39.4 mmHg FINDINGS LEFT VENTRICLE The left ventricular systolic function is low normal with an estimated ejection fraction in the rang e of 50- 55%. Normal left ventricular size. Wall thickness is measured at the upper limits of normal. RIGHT VENTRICLE Normal right ventricular size and systolic function. LEFT ATRIUM The left atrial size is normal. RIGHT ATRIUM The right atrial size is normal. ATRIAL SEPTUM Normal atrial septal thickness without atrial level shunting by limited color doppler interrogation. AORTA The aortic root and proximal ascending aorta are normal in size on limited imaging. MITRAL VALVE Structurally normal mitral valve. Mild mitral valve regurgitation. AORTIC VALVE Trileaflet aortic valve. No aortic valve stenosis or regurgitation. TRICUSPID VALVE Structurally normal tricuspid valve. There is mild tricuspid valve regurgitation. The estimated pulmonary arterial pressure is 39.4 mmHg. PULMONARY VALVE No pulmonary valve regurgitation or stenosis. VESSELS The inferior vena cava is normal in size. PERICARDIUM No pericardial effusion. Ronak Manzo MD, FACC (Electronically Signed) Final Date:01 August 2017 13:39
[2017-08-01 16:59] LABS: HEMOGLOBIN A1C 4.7 % (4.3-6.0)
--- NOTE | 2017-08-02 15:47 | HM ---
Date Performed: 07/31/2017 Time Performed: 18:36:00 HOOKUP DATE: 07/31/17 06:36:00 PM [facility] ANALYSIS START TIME: 07/31/2017 6:41:00 PM ANALYSIS END TIME: 08/01/2017 11:43:46 AM PATIENT AGE: 61 PATIENT HEIGHT PATIENT WEIGHT DRUG LIST PATIENT DIAGNOSIS: acute cva TEST NARRATIVE: The patient's average heart rate was 82 BPM. No episodes of tachycardia wer e noted. No episodes of bradycardia were noted. No pauses exceeding 2.0 seconds were noted. No ventricular ectopics were noted. 1 supraventricular ectopics, which represented < 1% of the to amanda beat count, were noted. The highest supraventricular ectopic frequency occurred from 09:00 PM to 10:00 PM [facility]. During this time 1 SVE(s) occurred. No episodes of ST depression (defined as -1.0 mm or more) were noted in channel 1. No episodes of ST depression (defined as -1.0 mm or more) were noted in channel 2. No episodes of ST depression (defined as -1.0 mm or more) were noted in channel 3. no diary returned TEST INTERPRETATION: Patient has only 1 PAC over the 24-hour monitoring. No PVCs. No heart block or ectopy was seen. This is a very benign-appearing and normal holter monitor. Signed by : David Andrews
== END 2017-08-01 12:25 | disposition home or self-care (01) ==
LOC: NEPC 08:21 → INTOOBSV 09:42 → NEDA 09:42 → N05B 14:01
PROVIDERS: ADMIT Hospitalist; ATTEND Hospitalist
DX: G45.9 Transient cerebral ischemic attack, unspecified (principal); R11.2 Nausea with vomiting, unspecified; I10 Essential (primary) hypertension; E78.00 Pure hypercholesterolemia, unspecified; K21.9 Gastro-esophageal reflux disease without esophagitis; G40.909 Epilepsy, unspecified, not intractable, without status epilepticus; M54.9 Dorsalgia, unspecified; G89.29 Other chronic pain; G47.00 Insomnia, unspecified; F31.9 Bipolar disorder, unspecified; Z87.891 Personal history of nicotine dependence; Z85.828 Personal history of other malignant neoplasm of skin; Z79.899 Other long term (current) drug therapy
CPT/HCPCS: 70450; 70496; 70498; 70551; 71045; 80048; 80061; 80307; 81001; 82550; 82948; 83036; 84484; 85025; 85384; 85610; 85730; 86850; 86900; 86901; 93005; 93225; 93226; 93306; 97161; 97166; 99285; G0378; J2405; J2765; J7030; Q9967